=== PATIENT | female | born 1955 | race Caucasian/White ===

== ENCOUNTER 2018-11-04 12:36 | Emergency (ER) | payer OTHER ==
[2018-11-04] MEDS: ONDANSETRON 4 MG INJ IV (13:08)
[2018-11-04] MEDS: HYDROmorphONE 0.5 MG/0.5 ML SYG IV (13:08)
== END 2018-11-04 14:34 | disposition home or self-care (01) ==
LOC: E/R 12:36
DX: S29.011A Strain of muscle and tendon of front wall of thorax, initial encounter (principal); R07.9 Chest pain, unspecified; W18.49XA Other slipping, tripping and stumbling without falling, initial encounter; Y92.9 Unspecified place or not applicable
CPT/HCPCS: 71045; 71100; 73562; 96374; 96375; 99284-25